=== PATIENT | female | born 1965 | race Caucasian/White ===

== ENCOUNTER → 2019-03-03 | Outpatient (CLI) | payer MEDICARE, OTHER ==
--- NOTE | 2019-03-03 15:28 | US ---
EXAMINATION TYPE: US transvaginal DATE OF EXAM: 03/03/2019 COMPARISON: NONE CLINICAL HISTORY: Metrorrhagia N92.1. Patient with HPV. No c/o, Perimenopausal, TECHNIQUE: Transvaginal (TV). Transabdominal sonographic images of the pelvis were acquired. Trans vaginal sonographic images were medically necessary to better assess the following anatomy: Date of LMP: 11/03/18 EXAM MEASUREMENTS: Uterus: 7.0 x 4.5 x 3.5 cm Endometrial Stripe: 0.4 cm Right Ovary: 1.2 x 1.3 x 0.7 cm Left Ovary: 1.3 x 1.0 x 0.9 cm 1. Uterus: Anteverted Heterogeneous texture , Cervical cysts noted. 2. Endometrium: wnl 3. Right Ovary: wnl 4. Left Ovary: wnl Spectral, color and waveform doppler imaging shows good arterial and venous flow within the ovaries ; 5. Bilateral Adnexa: wnl 6. Posterior cul-de-sac: wnl Heterogeneous uterus with poorly visualized endometrium, no suspicious thickening is identified. No f ree fluid in pelvis. Both ovaries are seen and small in size consistent with patient's postmenopausal age. Incidental small nabothian cyst noted image 30. IMPRESSION: No suspicious endometrial thickening.
== END | disposition home or self-care (01) ==
LOC: RADUSWWP 14:34
PROVIDERS: ATTEND Obstetrics & Gynecology
DX: N92.1 Excessive and frequent menstruation with irregular cycle (principal)
CPT/HCPCS: 76830

== ENCOUNTER → 2024-12-14 | Outpatient (CLI) | payer MEDICARE, OTHER ==
[2024-12-14 10:29] LABS: Basophils # (A) 0.06 X 10*3/uL (0.00-0.10); Basophils % (A) 1.1 %; Eosinophils % (A) 3.5 %; HCT 48.6 % (37.2-46.3); HGB 15.9 g/dL (12.0-15.0); Lymphocytes # (A) 1.96 X 10*3/uL (0.90-5.00); Lymphocytes % (A) 34.4 %; MCH 30.5 pg (27.0-32.0); MCHC 32.7 g/dL (32.0-37.0); MCV 93.3 FL (80.0-97.0); Mean Platelet Volume 10.8 FL (9.5-12.2); Monocytes # (A) 0.51 X 10*3/uL (0.20-1.00); Monocytes % (A) 8.9 %; NRBC Per 100 WBC 0 X 10*3/uL (0.00-0.01); Neutrophils # (A) 2.96 X 10*3/uL (1.80-7.70); Neutrophils % (A) 51.9 %; Platelet Count 183 X 10*3/uL (140-440); RBC 5.21 X 10*6/uL (4.10-5.20)
[2024-12-14 11:17] LABS: ALT 22 U/L (8-44); AST 20 U/L (13-35); Blood Urea Nitrogen 17.3 mg/dL (9.0-27.0); Carbon Dioxide 25.1 mmol/L (21.6-31.8); Chloride 105 mmol/L (96-109); Chol/HDL Ratio 2.69 Ratio; LDL Cholesterol,Calculated 69.8 mg/dL (0.0-131.0); Potassium 4.3 mmol/L (3.5-5.5); Sodium 141 mmol/L (135-145); T4, Free (Free Thyroxine) 0.95 ng/dL (0.80-1.80)
== END | disposition home or self-care (01) ==
LOC: LABWHC1 07:08
PROVIDERS: ATTEND Internal Medicine
DX: I10 Essential (primary) hypertension (principal); E67.3 Hypervitaminosis D; E78.2 Mixed hyperlipidemia; R73.9 Hyperglycemia, unspecified
CPT/HCPCS: 36415; 80051; 80061; 82306; 82565; 84439; 84443; 84450; 84460; 84480; 84520; 85025